=== PATIENT | female | born 1955 ===

== ENCOUNTER 2018-01-06 05:34 | Day surgery (SDC) | payer OTHER ==
[~2018-01-06 05:34] MED LIST: ADVAIR HFA 230/12 GM IH; AMARYL; AVALIDE 300-121 EACH PO; CRESTOR10 MG PO; FORTAMET1000 MG PO; LOVASTATIN10 MG PO; SINGULAIR10 MG PO; SYNTHROID112 MCG PO
[2018-01-06] MEDS ORDERED: DOXYCYCLINE HY100 M2 PO (09:00)
[2018-01-06] MEDS ORDERED: TRAM1TAB98 PO (09:02)
== END 2018-01-06 14:07 | disposition home or self-care (01) ==
LOC: CIR.AMB 05:34
DX: N84.0 Polyp of corpus uteri (principal); D25.0 Submucous leiomyoma of uterus